=== PATIENT | female | born 1955 | race Caucasian/White ===

== ENCOUNTER 2025-08-12 08:45 | Outpatient (RCR) | payer MEDICARE, BC, SELFPAY | END 2025-08-24 13:02 | disposition home or self-care (01) | PROVIDERS: PCP Physician Assistant; Visit Provider Physician Assistant | DX: M17.11 Unilateral primary osteoarthritis, right knee (principal); Z51.89 Encounter for other specified aftercare | CPT/HCPCS: 97110; 97140; 97161; 97530 ==